=== PATIENT | male | born 1955 | race Caucasian/White ===

== ENCOUNTER → 2018-04-28 | Outpatient (CLI) | payer OTHER, BC ==
--- NOTE | 2018-04-28 11:15 | KCIC ---
EXAM: Lumbar spine MRI without contrast. HISTORY: Right-sided sciatica. TECHNIQUE: Multiplanar, multisequence magnetic resonance imaging of the lumbar spine was performed without contrast. COMPARISON: None. FINDINGS: There is slight straightening of lumbar lordosis. There is slight retrolisthesis of L5 on S1. There is degenerative endplate remodeling with disc space narrowing and osteophytosis primarily at L5-S1. There is disc desiccation at L3-S1. There is minimal anterior wedging of L1 and L2, likely developmental in etiology. The conus terminates at L1. 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 There are multiple large cysts involving both kidneys, best seen on the v block saw operator images. The largest of these measures approximately 20 cm on the right. These are not completely included on the gelaj-ue-sngl. There are multiple small osseous hemangiomas. No suspicious osseous lesion is seen. At L1-L2, there is no stenosis. At L2-L3, there is endplate remodeling. There is mild facet arthropathy. There is no stenosis. At L3-L4, there is a disc bulge with posterior annular tear and endplate osteophytosis. There is a suspected superimposed right foraminal disc osteophyte complex. There is mild bilateral facet arthropathy. There is hypertrophy of the ligamentum flavum. There is dorsal epidural lipomatosis. 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 There is mild bilateral foraminal stenosis with abutment of the exiting L3 nerve roots. There is mild to moderate central canal stenosis. At L4-L5, there is a broad-based posterior central to right paracentral disc protrusion and 7 mm inferior right lateral recess disc extrusion superimposed on a disc bulge and endplate osteophytosis. There is minimal facet arthropathy. There is hypertrophy of the ligamentum flavum. There is dorsal epidural lipomatosis. 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 There is effacement of the right lateral recess with deviation of the traversing right nerve roots and moderate central canal stenosis. At L5-S1, there is a broad-based posterior central disc protrusion superimposed on a disc bulge and endplate osteophytosis. There is minimal facet arthropathy. There is mild to moderate right and moderate to severe left foraminal stenosis with effacement of the exiting left greater than right L5 nerve roots. There is also abutment of the traversing bilateral S1 nerve roots without significant central canal stenosis. IMPRESSION: 1. Multilevel degenerative change throughout the lumbar spine, described in detail above. The combination of degenerative changes and suspected congenital narrowing of the central canal at the mid lumbar levels contributes to significant stenosis at the aforementioned levels. 2. Multiple large cysts involving both kidneys. The largest cyst is seen on the right measuring 20 cm on the ggwsk-ed-vsne. The kidneys are not formally assessed on this exam. Electronically signed by: Karely Anders MD (04/28/2018 11:12 AM) [facility]
== END | disposition home or self-care (01) ==
LOC: KCIC MRI 10:21
PROVIDERS: ATTEND Family Medicine
DX: M47.896 Other spondylosis, lumbar region (principal); N28.1 Cyst of kidney, acquired; M48.061 Spinal stenosis, lumbar region without neurogenic claudication; M12.88 Other specific arthropathies, not elsewhere classified, other specified site; M48.07 Spinal stenosis, lumbosacral region; E88.2 Lipomatosis, not elsewhere classified; D18.09 Hemangioma of other sites
CPT/HCPCS: 72148

== ENCOUNTER → 2018-05-19 | Outpatient (CLI) | payer OTHER, BC ==
[~2018-05-19] MED LIST: BISO1TAB44 PO; GABA300C18 PO; GUAI600T47 PO; IBUP200T58 PO; LISI10TA2 PO; NAPR1TAB25 PO; NAPR220C4 PO; OXYC1TAB7 PO
--- NOTE | 2018-05-19 22:26 | PAIN ---
DATE OF SERVICE: 05/19/2018 INITIAL CONSULTATION FOR PAIN CLINIC CHIEF COMPLAINT: Low back and right lower extremity pain. HISTORY OF PRESENT ILLNESS: This is a 62-year-old male who presents with a history of pain on the low back and right leg for about a month, now increasing gradually, not a result of any specific injury or action he is aware of, but coming on gradually over time and has not gone away. The patient reports the pain is across the low back into the posterior gluteus, posterolateral thigh, lateral anterior thigh, medial thigh, medial lower leg and into the calf on the right side as well. The patient describes it as constant, throbbing with numbness and tingling in the leg, aching and dull across the low back to the point where he was unable to walk or bear weight on it. About a month ago, he went to an [facility] and had an MRI scan performed and results of that were showing multilevel degenerative changes at L4-L5, with a broad-based posterior dvlmdeh-pr-rhflj paracentral disk protrusion and right lateral recess disk extrusion superimposed on disk bulge with right lateral recess effacement and deviation of the traversing right nerve roots and moderate central canal stenosis. L5-S1 shows broad-based posterior central disk protrusion superimposed on disk bulge and endplate osteophytosis with moderate right and akimjdqn-jd-jpdkqe left foraminal stenosis, effacing the exiting left greater than right at L4-L5 nerve root, abutment of the traversing bilateral S1 nerve roots as well. The patient reports since that time, he has tried a Medrol Dosepak, which did help. He is also taking oxycodone, tizanidine and gabapentin which he just started 2 days ago. The patient reports the oxycodone and tizanidine does decrease the pain by about 40%. The patient is currently undergoing physical therapy and is continuing this, doing exercises on his own. He also has some chiropractic treatments since this happened last month and is doing exercises on his own as well. The patient reports it awakens him from sleep at least 3-4 times a night. It does not affect his bowel or bladder control, but does affect his ability to walk using a cane in his left hand. The patient reports a disability rate from 0-10, 10 being the worst, with 5 with family home responsibilities, 7 with recreation and occupation, 4 with social activity, 6 with sexual behavior, 5 with self-care and 4 with life-support activities. The patient reports no overt loss of motor function, but significant fatigability to the right leg with ambulation. It is better with sitting or lying down initially, but then it does awaken him from sleep fairly often through the night, especially when he is lying on his right side. PAST MEDICAL HISTORY: Significant for hypertension. Otherwise, he had been in good health. PAST SURGICAL HISTORY: Previous surgeries include hemorrhoidectomy in 2015 and tonsillectomy at age 10. CURRENT MEDICATIONS: Include Aleve, Advil, Mucinex, gabapentin, bisoprolol and lisinopril. ALLERGIES: The patient has no known drug allergies. FAMILY HISTORY: Significant for no major medical conditions or problems that he is aware of. SOCIAL HISTORY: The patient does not drink alcohol. He does not smoke. He does not use any illegal or illicit recreational drugs. He is and lives with his spouse, has 2 children living at home and lives locally in [place], [place]. He reports he works part-time. He is officially retired, but does have a part-time job which he has been off for the last month secondary to the pain. REVIEW OF SYSTEMS: The patient's review of systems is positive for those items mentioned in the history of present illness. All systems reviewed and otherwise negative. It is complete, full and well documented on the patient's chart. PHYSICAL EXAMINATION: VITAL SIGNS: The patient's blood pressure is 138/91, pulse 93, respirations are 18 and temperature is 98.8 degrees Fahrenheit. Height 6 feet 2 inches, weight is 274 pounds. GENERAL: The patient is awake, alert, oriented and appropriate. He has a very pleasant demeanor. HEENT EXAMINATION: Shows normocephalic and atraumatic. Extraocular movements are intact and symmetrical. Oral cavity, mucous membranes are moist and pink. Dentition is intact. NECK: Shows anterior throat supple, without palpable lymphadenopathy noted. Swallow reflex is symmetrical. CHEST: Shows normal on inspection. Breath sounds clear to auscultation bilaterally. HEART: Shows S1, S2 clear. No murmurs auscultated. ABDOMEN: Soft, nontender and nondistended. No palpable organomegaly is noted. No rebound or guarding demonstrated. BACK: Shows spine grossly in the midline. Normal-appearing thoracic kyphosis and lumbar lordotic curvature. Lumbar paraspinous muscle shows symmetrical on inspection. With palpation, it shows some moderate tenderness, but only diffusely in the lower lumbar distribution, slightly more on the right than the left, but is symmetrical without evidence of atrophy or hypertrophy. No trigger points. No radiation of the pain. The patient has no tenderness with pressure over the sacrum or sacroiliac regions or the spinous processes. He shows good rotation of the lumbar spine at 10 degrees, right and left lateral as well as extension greater than 10 degrees and forward flexion at 45 degrees without increase in pain. EXTREMITIES: The patient's lower extremities show deep tendon reflexes at 2+ in the patellar, 1+ tendo calcaneus tendons. Motor exam is approximately 4 on a scale of 5 on the right and 5/5 on the left with dorsiflexion, extension, quadriceps and hamstring flexion. Peripheral pulses are 1+ posterior tibia. No peripheral edema is noted bilaterally. Lower extremities are warm and dry to touch, equal in color and appearance. Gaenslen's and Adolfo's maneuvers are negative bilaterally. The patient does have a positive straight leg raise, however, on the right at about 40 degrees, which is decreased with knee flexion, but not completely relieved. Left side is negative. The patient is able to stand, stand on his toes, walks with a slight limp. He is using a cane in his left hand and does appear to favor his right lower extremity with a slight limp when ambulating. SKIN: The patient's skin shows warm and dry, good turgor. No edema. No sores, rashes or bruising. IMPRESSION: 1. This is a 62-year-old male with approximately one-month history of increasing pain in the low back and right lower extremity in a radicular fashion following a L4 and L5 dermatomal distribution. 2. MRI scan of the lumbar spine as noted. 3. History of hypertension. PLAN: Options were discussed with the patient including conservative medical management with physical therapies, continued physical therapies, interventional techniques. He would like to pursue interventional techniques as he is already doing physical therapy. He is doing the exercises and has had some chiropractic treatment as well, without significant improvement. We discussed a lumbar epidural steroid injection using description as well as anatomical models to describe the procedure. The patient will return to the clinic once preauthorization is obtained with his insurance provider. The patient will continue doing physical therapy in the meantime. We will also try a second Medrol Dosepak as he did well with this in the initial stages of the pain last month. We gave him instructions as well as side effects to be aware of with the medication. The patient will follow up once insurance approval is obtained, and we will plan on lumbar epidural steroid injection at that time at the L4-L5 level for his right L4-L5 dermatomal distribution radiculopathy. KYLIE MANCINI MD DR: LUCRETIA/fe JOB#: [id number] / [id number] BRENDAN Grimaldo MD
== END | disposition home or self-care (01) ==
LOC: PNCL 10:39
PROVIDERS: ATTEND Anesthesiology
DX: M79.604 Pain in right leg (principal); M54.5 Low back pain; I10 Essential (primary) hypertension
CPT/HCPCS: G0463

== ENCOUNTER → 2018-06-02 | Outpatient (CLI) | payer OTHER, BC ==
[~2018-06-02] MED LIST changes: +IOHEXOL 180 MG/ML 10 ML VIAL. ONE; +methylPREDNISolone ACETATE 40 MG/ML VIAL. ONE; +methylPREDNISolone ACETATE 80 MG/ML VIAL. ONE
--- NOTE | 2018-06-02 11:06 | PAIN ---
DATE OF SERVICE: 06/02/2018 PROGRESS NOTE FOR PAIN CLINIC DIAGNOSES: Lumbar radiculopathy with lumbar degenerative disk disease and lumbar spinal stenosis. HISTORY OF PRESENT ILLNESS: The patient is a 62-year-old male who returns for followup status post initial evaluation and preauthorization for epidural injection. She has obtained that now and would like to proceed. The patient reports still significant pain in the low back and right lower extremity as it was previously, in the right posterior back as well as in the posterior gluteus, lateral anterior thigh, anterior medial thigh and medial lower leg. The patient reports it is a 4 on a scale of 10 at its worse, 3 on average, 1 at its least and is a 3 today. The patient reports no new motor or sensory deficits, no new bowel or bladder incontinence or other complaints. PHYSICAL EXAMINATION: VITAL SIGNS: The patient's blood pressure is 141/92, pulse 80, respirations 18, temperature is 98.0 degrees Fahrenheit, height 6 feet 2 inches and weight is 274 pounds. GENERAL: The patient is awake, alert, oriented, appropriate, very pleasant demeanor. HEENT: Head is normocephalic, atraumatic. Extraocular muscles are intact and symmetrical. Oral cavity: Mucous membranes are moist and pink. Dentition intact. NECK: Shows anterior throat supple without palpable lymphadenopathy noted. Swallow reflex symmetrical. CHEST: Shows normal on inspection. Breath sounds clear to auscultation bilaterally. HEART: Shows S1, S2 clear. No murmurs auscultated. ABDOMEN: Soft, nontender, nondistended. No palpable organomegaly is noted. No rebound or guarding demonstrated. BACK: Shows spine grossly in the midline. Normal appearing thoracic kyphosis and lumbar lordotic curvature. Lumbar paraspinous muscle shows symmetrical on inspection, with palpation shows some moderate tenderness, but only diffusely in the low lumbar distribution bilaterally. No radiation. The patient has good rotational motion of lumbar spine, both laterally as well as extension and flexion without difficulty. EXTREMITIES: The patient's lower extremities show deep tendon reflexes 2+ in patellar and 1+ in tendocalcaneus tendons. Motor exam is strong with dorsiflexion, extension, quadriceps and hamstring flexion and symmetrical as well. Peripheral pulses are 1+ in posterior tibia. No peripheral edema is noted bilaterally. Options were discussed with the patient. The patient's old chart was reviewed as his current medication regimen updated. Current review of systems updated today as well and we will proceed with a lumbar epidural steroid injection today, the first in this series. Risks were discussed including but not limited to bleeding, infection, possibility of epidural hematoma, subsequent neurological compromise, dural puncture, headaches, spinal cord and/or nerve damage, side effects of steroid medication and poor results regarding pain control. The patient understands and wished to proceed. The patient is to return to the clinic in approximately 2 weeks for followup, was counseled on return appointment, activity level and side effects to be aware of. DIAGNOSIS: Lumbar radiculopathy with lumbar degenerative disk disease, lumbar spinal stenosis. PROCEDURE: Lumbar epidural steroid injection, translaminar approach at the L4-L5 level using C-arm fluoroscopic guidance under sterile prep and drape using local anesthetic. MEDICATION INJECTED: A total of 120 mg of Depo-Medrol plus 10 mL of preservative-free normal saline and 2 mL of Isovue for contrast. CONDITION AT DISCHARGE: Stable. The patient tolerated the procedure well, had no complications. KYLIE MANCINI MD DR: LUCRETIA/fe JOB#: [id number] / [id number]
== END | disposition home or self-care (01) ==
LOC: PNCL 09:00
PROVIDERS: ATTEND Anesthesiology
DX: M48.061 Spinal stenosis, lumbar region without neurogenic claudication (principal); M51.16 Intervertebral disc disorders with radiculopathy, lumbar region; Z98.890 Other specified postprocedural states
CPT/HCPCS: 62323; J1030; J1040; Q9965

== ENCOUNTER → 2018-06-17 | Outpatient (CLI) | payer OTHER, BC ==
--- NOTE | 2018-06-17 21:48 | PAIN ---
DATE OF SERVICE: 06/17/2018 DIAGNOSES: Lumbar radiculopathy with lumbar spinal stenosis, lumbar degenerative disk disease. HISTORY OF PRESENT ILLNESS: The patient is a 62-year-old male who returns for followup status post lumbar epidural injection x 1, reports about 85-90% improvement after first injection with pain returning now in his low back and right leg. The patient reports he is better for about 2-3 weeks after the injection and has just returned over the past few days. The patient reports he has been increasing his activity, greater distances walking, doing household activities, as well as work activities. The pain is returning just as he returned to work in the low back, right lower extremity, posterior lateral thigh, the lateral anterior thigh, medial thigh, medial lower leg and calf, also medial aspects of the foot. The patient reports it is a tingling, cramping, tight across the back, constant in the leg now over the past few days. The patient reports, over the last week, the pain is worse, is an 8 on a scale of 10, average of 5, and least is a 3 and is a 3 today. The patient reports no new motor or sensory deficits, no new bowel or bladder incontinence or other complaints. PHYSICAL EXAMINATION: VITAL SIGNS: The patient's blood pressure is 150/109, pulse 98, respirations 18, temperature is 98.6 degrees Fahrenheit, height is 6 feet 2 inches, weight is 269 pounds. GENERAL: The patient is awake, alert, oriented, appropriate, very pleasant demeanor. HEENT: Shows normocephalic, atraumatic. Extraocular movements are intact and symmetrical. Oral cavity: Mucous membranes moist and pink. Dentition is intact. NECK: Shows anterior throat supple without palpable lymphadenopathy noted. Swallow reflex is symmetrical. CHEST: Shows normal on inspection. Breath sounds are clear to auscultation bilaterally. HEART: Shows S1, S2 clear. No murmurs auscultated. ABDOMEN: Soft, nontender, nondistended. No palpable organomegaly is noted. No rebound or guarding demonstrated. BACK: Shows spine grossly in the midline. Normal appearing thoracic kyphosis and lumbar lordotic curvature. Lumbar paraspinous muscle shows symmetrical on inspection. On palpation shows some moderate tenderness diffusely, but only diffusely without significant radiation. EXTREMITIES: The patient's lower extremities show deep tendon reflexes at 2+ in the patellar, 1+ tendo calcaneus tendons. Motor exam is strong with 5/5 dorsiflexion, extension, quadriceps and hamstring flexion and symmetrical. Peripheral pulses are 1+ posterior tibia. No peripheral edema is noted bilaterally. Options were discussed with the patient. The patient's old chart was reviewed as was his current medication regimen updated. Current review of systems is updated today as well. We will proceed with a second in the series of lumbar epidural steroid injection today with fluoroscopic guidance. Risks were again discussed including, but not limited to bleeding, infection, possibility of epidural hematoma, subsequent neurological compromise, dural puncture, headaches, spinal cord and/or nerve damage, side effects of steroid medication and poor results regarding pain control. The patient understands and wished to proceed. The patient will return to the clinic in approximately 2 weeks for followup, was counseled on return, activity level and side effects to be aware of. DIAGNOSIS: Lumbar radiculopathy with lumbar degenerative disk disease, lumbar spinal stenosis. PROCEDURE: Lumbar epidural steroid injection, translaminar approach at L4-L5 level using C-arm fluoroscopic guidance under sterile prep and drape using local anesthetic. MEDICATION INJECTED: A total of 120 mg Depo-Medrol plus 10 mL of preservative-free normal saline and 2 mL of contrast. CONDITION AT DISCHARGE: Stable. The patient tolerated the procedure well, had no complications. KYLIE MANCINI MD DR: LUCRETIA/fe JOB#: [id number] / [id number]
== END | disposition home or self-care (01) ==
LOC: PNCL 08:20
PROVIDERS: ATTEND Anesthesiology
DX: M51.16 Intervertebral disc disorders with radiculopathy, lumbar region (principal); M48.061 Spinal stenosis, lumbar region without neurogenic claudication
CPT/HCPCS: 62323; J1030; J1040; Q9965

== ENCOUNTER → 2018-07-01 | Outpatient (CLI) | payer OTHER, BC ==
[~2018-07-01] MED LIST changes: -IOHEXOL 180 MG/ML 10 ML VIAL. ONE; -methylPREDNISolone ACETATE 40 MG/ML VIAL. ONE; -methylPREDNISolone ACETATE 80 MG/ML VIAL. ONE
--- NOTE | 2018-07-01 22:13 | PAIN ---
DATE OF SERVICE: 07/01/2018 PROGRESS NOTE FOR PAIN CLINIC DIAGNOSES: Lumbar radiculopathy with lumbar degenerative disk disease and lumbar spinal stenosis. HISTORY OF PRESENT ILLNESS: The patient is a 62-year-old male who returns for followup status post lumbar epidural steroid injections x 2. The patient reports about 75%-80% improvement after the last injection, still lasting to that level. The patient reports he has been increasing her activity with greater ease and comfort, walking, better, was doing household activities and still with some numbness in the right leg with walking and standing more than about 10 minutes. The patient reports otherwise doing very much better, able to sleep well at night and it does not awaken him from sleep. The patient reports his pain is 6 on a scale 10 at its worst, 4 on average, 2 at its least over the past week and is a 2 today. The patient reports it is tingling, burning and a stingy numbness in the right leg, is becoming more noticeable with walking. The patient reports other than that, the pain in the back is essentially gone. He is doing much better, but the leg with numbness and tingling is his main complaint. The patient reports no new motor or sensory deficits. No new bowel or bladder incontinence or other complaints. PHYSICAL EXAMINATION: VITAL SIGNS: The patient's blood pressure 136/96, pulse 88, respirations 18 and temperature 98.0 degrees Fahrenheit. Height 6 feet 2 inches and weight 268 pounds. GENERAL: The patient is awake, alert, oriented, appropriate and very pleasant demeanor. HEENT: Head shows normocephalic and atraumatic. Extraocular movements are intact and symmetrical. Oral cavity: Mucous membranes moist and pink. Dentition is intact. NECK: Shows anterior throat supple without palpable lymphadenopathy noted. Swallow reflex symmetrical. CHEST: Shows normal on inspection. Breath sounds clear to auscultation bilaterally. HEART: Shows S1 and S2 clear. No murmurs auscultated. ABDOMEN: Soft, nontender and nondistended. No palpable organomegaly is noted. No rebound or guarding demonstrated. BACK: Shows spine grossly in the midline. Normal appearing thoracic kyphosis, minor flattening of lumbar lordotic curvature. Lumbar paraspinous muscle shows symmetrical on inspection and on palpation shows some mild tenderness but only diffusely in the lower lumbar distribution without radiation. EXTREMITIES: The patient's lower extremities show deep tendon reflexes at 2+ in the patellar, 1+ tendo-calcaneus tendons. Motor exam is approximately 4 on a scale of 5 with right dorsiflexion, extension, 5/5 on the left. Peripheral pulses are 1+ posterior tibial. No peripheral edema is noted bilaterally. Options were discussed with the patient. The patient's old chart was reviewed as well as his current medication regimen updated. Current review of systems updated today as well. We will hold on any further injections at this time and would like to see how he does with some increased activity, also has been using an inversion table at home and we will have him do this for another week or so prior to evaluate how he is doing potentially for a third lumbar epidural steroid injection at that time. The patient will increase his activity again uses an inversion table about twice daily and see if had some improvement in the meantime. KYLIE MANCINI MD DR: LUCRETIA/fe JOB#: [id number] / [id number]
== END | disposition home or self-care (01) ==
LOC: PNCL 08:13
PROVIDERS: ATTEND Anesthesiology
DX: M51.16 Intervertebral disc disorders with radiculopathy, lumbar region (principal); M48.061 Spinal stenosis, lumbar region without neurogenic claudication
CPT/HCPCS: G0463

== ENCOUNTER → 2018-07-09 | Outpatient (CLI) | payer OTHER, BC ==
[~2018-07-09] MED LIST changes: +IOHEXOL 180 MG/ML 10 ML VIAL. ONE; +methylPREDNISolone ACETATE 40 MG/ML VIAL. ONE; +methylPREDNISolone ACETATE 80 MG/ML VIAL. ONE
--- NOTE | 2018-07-09 19:39 | PAIN ---
DATE OF SERVICE: 07/09/2018 DIAGNOSES: Lumbar radiculopathy with lumbar degenerative disk disease, lumbar spinal stenosis. HISTORY OF PRESENT ILLNESS: The patient is a 62-year-old male who returns for a followup status post lumbar epidural steroid injection x 2. The patient reports about 75-80% improvement, still continuing with improvement, still some pain in the low back and right leg. The patient reports it as a 6 on a scale of 10 at its worst over the past week, a 4 on average, 2 at its least and is a 2 today. The patient reports tingling, burning, becoming more constant, worse with walking and standing, but much better. He has been increasing his activity generally, walking, doing work activities, household activities, traveling with greater ease and comfort, sleeping better at night, but still awakens him from sleep about every 5-6 hours if he lies on the right side. The patient reports no new motor or sensory deficits, no new bowel or bladder incontinence or other complaints. PHYSICAL EXAMINATION: VITAL SIGNS: The patient's blood pressure is 125/92, pulse 87, respirations are 16, temperature is 98.4 degrees Fahrenheit, weight is 270 pounds. GENERAL: The patient is awake, alert, oriented, appropriate, very pleasant demeanor. HEENT: Shows normocephalic, atraumatic. Extraocular movements are intact and symmetrical. Oral cavity shows mucous membranes moist and pink. Dentition is intact. NECK: Shows anterior throat supple without palpable lymphadenopathy noted. Swallow reflex symmetrical. CHEST: Shows normal with inspection. Breath sounds clear to auscultation bilaterally. HEART: Shows S1, S2 clear. No murmurs auscultated. ABDOMEN: Soft, nontender, nondistended. No palpable organomegaly is noted. No rebound or guarding demonstrated. MUSCULOSKELETAL: Back shows spine grossly in the midline, normal appearing thoracic kyphosis and some minor flattening of lumbar lordotic curvature. Lumbar paraspinous muscle shows symmetrical on inspection; on palpation shows some moderate tenderness bilaterally, but only diffusely without specific radiation. The patient's back shows good rotational motion both laterally as well as extension and flexion without significant difficulty. Lower extremities show deep tendon reflexes at 2+ in the patellar, 1+ tendo-calcaneus tendons. Motor exam remains strong approximately 4 on a scale of 5 with right dorsiflexion and extension, 5/5 on the left. Peripheral pulses are 1+. No peripheral edema is noted bilaterally. PLAN: Options were discussed with the patient. The patient's old chart was reviewed as his current medication regimen and updated. Current review of systems updated today as well. We will proceed with a third in the series of lumbar epidural steroid injection today with fluoroscopic guidance. Risks were again discussed including, but not limited to bleeding, infection, possibility of epidural hematoma, subsequent neurological compromise, dural puncture, headaches, spinal cord and/or nerve damage, side effects of steroid medication and poor results regarding pain control. The patient understands and wished to proceed. The patient will return to clinic in approximately 2 weeks for a followup, was counseled on return appointment, activity level and side effects to be aware of. DIAGNOSES: Lumbar radiculopathy with lumbar degenerative disk disease, lumbar spinal stenosis. PROCEDURE: Lumbar epidural steroid injection, translaminar approach at L4-L5 level using C-arm fluoroscopic guidance under sterile prep and drape using local anesthetic. MEDICATIONS INJECTED: A total of 120 mg Depo-Medrol plus 10 mL of preservative-free normal saline and 2 mL of contrast. CONDITION AT DISCHARGE: Stable. The patient tolerated the procedure well, had no complications. KYLIE MANCINI MD DR: LUCRETIA/fe JOB#: [id number] / [id number]
== END | disposition home or self-care (01) ==
LOC: PNCL 08:03
PROVIDERS: ATTEND Anesthesiology
DX: M51.16 Intervertebral disc disorders with radiculopathy, lumbar region (principal); M48.061 Spinal stenosis, lumbar region without neurogenic claudication
CPT/HCPCS: 62323; J1030; J1040; Q9965

== ENCOUNTER → 2018-08-17 | Outpatient (CLI) | payer OTHER, BC ==
[~2018-08-17] MED LIST changes: -IOHEXOL 180 MG/ML 10 ML VIAL. ONE; -methylPREDNISolone ACETATE 40 MG/ML VIAL. ONE; -methylPREDNISolone ACETATE 80 MG/ML VIAL. ONE
--- NOTE | 2018-08-17 15:43 | EKG ---
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
[2018-08-17 16:10] LABS: BASO % 0 % (0-3); EOS # 0.1 x10^3/uL (0.0-0.7); EOS % 2 % (0-3); HEMATOCRIT 48.3 % (39.0-53.0); HEMOGLOBIN 15.9 g/dL (13.0-17.5); LYMPH # 1.2 x10^3/uL (1.0-4.8); LYMPH % 20 % (24-48); MEAN CORPUSCULAR HEMOGLOBIN 29 pg (25-35); MEAN CORPUSCULAR HGB CONC 33 g/dL (31-37); MEAN CORPUSCULAR VOLUME 87 fL (79-100); MONO # 0.6 x10^3/uL (0.0-1.1); MONO % 11 % (0-9); NEUT # 3.8 x10^3uL (1.8-7.7); NEUT % 67 % (31-73); PLATELET COUNT 256 x10^3/uL (140-400); RED BLOOD COUNT 5.59 x10^6/uL (4.30-5.70); RED CELL DISTRIBUTION WIDTH 14.5 % (11.5-14.5); WHITE BLOOD COUNT 5.7 x10^3/uL (4.0-11.0)
[2018-08-17 16:35] LABS: ALBUMIN 3.6 g/dL (3.4-5.0); CALCIUM 9.5 mg/dL (8.5-10.1); CREATININE 0.9 mg/dL (0.7-1.3); GFR 86.1; POTASSIUM 3.5 mmol/L (3.5-5.1); TOTAL BILIRUBIN 0.3 mg/dL (0.2-1.0); TOTAL PROTEIN 7.2 g/dL (6.4-8.2)
== END | disposition home or self-care (01) ==
LOC: SURGPAT 13:30
PROVIDERS: ATTEND Neurological Surgery
DX: Z01.818 Encounter for other preprocedural examination (principal); M51.16 Intervertebral disc disorders with radiculopathy, lumbar region; M21.371 Foot drop, right foot
CPT/HCPCS: 36415; 80053; 85025; 87641; 93005

== ENCOUNTER → 2020-06-19 | Outpatient (CLI) | payer OTHER, BC ==
[2018-08-27 12:42] VITALS: BP 140/82
[~2020-06-19] MED LIST changes: +DOCU-109 PO; +LISI10TA16 PO; -LISI10TA2 PO; +METH-38 PO
--- NOTE | 2020-06-19 11:25 | KCIC ---
MR LUMBAR SPINE WO -[id number] Date: 06/19/2020 9:35 AM Indication: Reason: LUMBAR BACK PAIN WITH RADIATION AFFECTING RLE / Spl. Instructions: Prior surgery 2019. / History: Right outer thigh pain, numbness and burning since Apr. Comparison: 04/28/2018. Technique: Multi-planar multi-weighted magnetic resonance imaging of the lumbar spine was performed w ithout intravenous contrast using the standard lumbar spine protocol. FINDINGS: Straightening of the lumbar lordosis. No acute fracture. Mild to moderate multilevel degenerative dis c desiccation and disc height loss. Nonspecific T1 hypointense marrow signal, which can be seen with smoking, anemia, or obesity. Fatty degenerative endplate changes at L5-S1. The conus terminates at a normal level. No abnormal signal is seen within the visualized distal spina l cord. No clumping of intrathecal nerve roots. Partially visualized large bilateral renal cysts. T12-L1: No disc bulge. No facet arthropathy. No significant spinal stenosis or neural foraminal narro wing. L1-L2: No disc bulge. No facet arthropathy. No significant spinal stenosis or neural foraminal narrow ing. L2-L3: Disc bulge. Mild facet arthropathy. Prominent dorsal epidural fat. Mild spinal stenosis. Moder ate to severe right neural foraminal narrowing is no from the prior exam. Mild left neural foraminal narrowing. L3-L4: Disc bulge. Moderate facet arthropathy. Ligamentum flavum thickening. Prominent dorsal epidura l fat. Mild spinal stenosis. Mild right and moderate left lateral recess narrowing. Mild bilateral ne ural foraminal narrowing. L4-L5: Right hemilaminectomy. Disc bulge with annular tear. No spinal canal stenosis, previously mode rate. Mild left lateral recess narrowing. Mild to moderate bilateral neural foraminal narrowing. L5-S1: Disc bulge. Mild facet arthropathy. No significant spinal stenosis. Mild lateral recess narrow ing. Moderate right and severe left neural foraminal narrowing. IMPRESSION: 1. Moderate to severe narrowing of the right L2-3 neural foramen is new from the prior exam. Correlat e for right L2 radiculopathy. 2. Interval posterior decompression at L4-5 with no residual spinal canal stenosis. 3. Incompletely visualized large bilateral renal cysts. Electronically signed by: Vadim Madrigal MD (06/19/2020 11:23 AM) [id number]
== END ==
LOC: KCIC MRI 09:20
PROVIDERS: ATTEND Family Medicine
DX: M47.817 Spondylosis without myelopathy or radiculopathy, lumbosacral region (principal); M48.07 Spinal stenosis, lumbosacral region; N28.1 Cyst of kidney, acquired; Z98.890 Other specified postprocedural states
CPT/HCPCS: 72148

== ENCOUNTER → 2021-01-11 | Outpatient (CLI) | payer OTHER, BC ==
[2018-08-27 12:42] VITALS: BP 140/82
[~2021-01-11] MED LIST changes: +GADOTERATE 7.5 MMOL/15ML VIAL. IVP ONE
--- NOTE | 2021-01-11 10:21 | KCIC ---
EXAM: Lumbar spine MRI without and with contrast. HISTORY: Radiculopathy. Right lower extremity numbness and pain. TECHNIQUE: Multiplanar, multisequence magnetic resonance imaging of the lumbar spine was performed wi thout and with contrast. COMPARISON: 06/19/2020 FINDINGS: There is mild lumbar dextroscoliosis. There is straightening of lumbar lordosis. There is m ild retrolisthesis of L5 on S1. There is degenerative endplate remodeling with disc space narrowing, osteophytosis and Schmorl's node formation at L5-S1. There are lesser degrees of endplate remodeling at the remainder of the lumbar levels. There is disc desiccation at the mid lower lumbar levels. Ther e is no acute or subacute fracture or suspicious osseous lesion. The conus terminates at L1. There ar e multiple renal cysts which extend beyond the [id number]. There is also a massive cystic lesion e xtending beyond the midline within the abdomen and pelvis measuring greater than 20 cm. At L1-L2, there is endplate remodeling. There is no stenosis. At L2-L3, there are bilateral foraminal to extra foraminal disc protrusions and slight superior extru sions superimposed on a disc bulge and endplate remodeling. There is mild bilateral facet arthropathy . There is moderate to severe bilateral foraminal stenosis with abutment of the exiting L2 nerve root s. There is moderate central canal stenosis. At L3-L4, there are bilateral foraminal to extra foraminal disc protrusions superimposed on a disc bu lge and endplate remodeling. There is mild right and moderate left facet arthropathy. There is hypert rophy of the ligamentum flavum. There is moderate to severe right and mild left foraminal stenosis wi th abutment of the exiting right greater than left L3 nerve roots. There is moderate central canal st enosis. At L4-L5, there is a broad-based posterior disc protrusion superimposed on a disc bulge and endplate remodeling. There is mild left facet arthropathy. There are right hemilaminectomy changes. There is h ypertrophy of the left ligamentum flavum. There is mild bilateral foraminal stenosis. There is mild c entral canal stenosis. At L5-S1, there are bilateral foraminal to extra foraminal disc osteophyte complexes superimposed on a disc bulge and endplate osteophytosis. There is mild left greater than right facet arthropathy. The re is retrolisthesis. There is severe bilateral foraminal stenosis. IMPRESSION: 1. Multilevel degenerative change involving the lumbar spine, described in detail above. This results in significant foraminal and central canal stenosis at the aforementioned levels. These findings are similar compared to the prior exam, with exception of increase in a left foraminal to extraforaminal disc protrusion and slight superior extrusion at L2-L3. 2. Right hemilaminectomy changes at L4-L5. 3. Multiple renal cysts and massive cystic lesion occupying a large portion of the abdomen and pelvis and predominantly excluded from the [id number], also likely renal in etiology. This can be better assessed with a dedicated abdomen and pelvis CT if not previously performed. Electronically signed by: Karely Anders MD (01/11/2021 10:19 AM) [id number]
== END ==
LOC: KCIC MRI 08:28
PROVIDERS: ATTEND Neurological Surgery
DX: M47.27 Other spondylosis with radiculopathy, lumbosacral region (principal); M25.78 Osteophyte, vertebrae; M48.07 Spinal stenosis, lumbosacral region; N28.1 Cyst of kidney, acquired
CPT/HCPCS: 72158; A9575

== ENCOUNTER → 2021-02-05 | Outpatient (CLI) | payer OTHER, BC ==
[2018-08-27 12:42] VITALS: BP 140/82
[~2021-02-05] MED LIST changes: -GADOTERATE 7.5 MMOL/15ML VIAL. IVP ONE; +IOHEXOL 240 MG/ML 50ML VIAL. PO ONE; +IOHEXOL 300 MG/ML 100ML VIAL. IV ONE
--- NOTE | 2021-02-05 10:14 | KCIC ---
INDICATION: Reason: Abnormality Rt kidney seen on recent MRI Lspine / Spl. Instructions: 100mL Omni 3 00 / History: Known renal cyst, no recent scans.. COMPARISON: MRI lumbar December 2020 TECHNIQUE: Axial CT images obtained through the abdomen and pelvis with contrast. One or more of the following individualized dose reduction techniques were utilized for this examinat ion: 1. Automated exposure control; 2. Adjustment of the mA and/or kV according to patient size; 3 . Use of iterative reconstruction technique. FINDINGS: Mild dependent airspace opacities at lung bases. Given location most common cause would be atelectasi s. Partial visualization of coronary artery calcific atherosclerosis. Scattered calcific atherosclerosis . Right greater than left fat-containing inguinal hernias. No intrahepatic bile duct dilation. Liver appears borderline low density. Nonspecific but mild fatty infiltration not excluded. No peripancreatic fluid collection. No hydronephrosis. Numerous large cystic lesions likely renal in origin measuring up to 21 cm on the right and 17 cm on the left. Urinary bladder is partially distended. Small fat-containing umbilical hernia. No periappendiceal inflammatory changes. No dilated loops of bowel to suggest obstruction. Degenerative changes the spine. Multilevel central canal and neural foraminal stenosis. Prostate is enlarged IMPRESSION: * Bilateral large cystic lesions of the kidneys. Electronically signed by: Ramos Cook MD (02/05/2021 10:11 AM) [id number]
== END ==
LOC: KCIC CT 08:28
PROVIDERS: ATTEND Family Medicine
DX: N28.89 Other specified disorders of kidney and ureter (principal); I25.10 Atherosclerotic heart disease of native coronary artery without angina pectoris; K42.9 Umbilical hernia without obstruction or gangrene; K44.9 Diaphragmatic hernia without obstruction or gangrene; N40.0 Benign prostatic hyperplasia without lower urinary tract symptoms; M47.819 Spondylosis without myelopathy or radiculopathy, site unspecified
CPT/HCPCS: 74177; Q9966; Q9967